=== PATIENT | female | born 1985 | race Caucasian/White ===

== ENCOUNTER → 2018-08-14 | Outpatient (CLI) | payer OTHER ==
--- NOTE | 2018-08-14 17:01 | CT ---
EXAM DESCRIPTION: Head w/wo Contrast CLINICAL HISTORY: 20654 COMPARISON: None available TECHNIQUE: CT brain is performed prior to and following IV administration of routine adult dose of nonionic iodinated contrast. FINDINGS: Ventricles and sulci are unremarkable on precontrast images. Mildly prominent extra-axial spaces. There is no hemorrhage or mass. There are no white matter abnormalities detected. The calvarium is unremarkable. Small fluid level is seen in the right maxillary sinus. This suggests mild acute sinusitis. There is patchy opacification of right ethmoid air cells as well. The other visualized paranasal sinuses and the mastoids are clear. After IV contrast, repeat axial CT imaging of the brain shows normal enhancement of the intracranial vessels. Normal enhancement of the vessels of the [place] with normal enhancement of peripheral branch vessels in the anterior, middle and posterior cerebral distributions. No enhancing intracranial mass. Normal silva-white matter differentiation. No abnormal enhancement of the brain parenchyma to suggest disruption of the blood brain barrier. Coronal and sagittal reformatted images before and after IV contrast confirm the findings. IMPRESSION: Normal CT appearance of the brain before and after IV contrast. Right maxillary and right ethmoid sinusitis. This exam was performed according to our departmental dose-optimization program, which includes automated exposure control, adjustment of the mA and/or kV according to patient size and/or use of iterative reconstruction technique. Electronically signed by: Leeroy Porter MD 08/14/2018 5:00 PM [facility]
== END ==
LOC: LAB.O 15:24
PROVIDERS: ATTEND Nurse Practitioner Family
DX: R51 Headache (principal); J01.20 Acute ethmoidal sinusitis, unspecified; J01.00 Acute maxillary sinusitis, unspecified